=== PATIENT | male | born 1990 | race Caucasian/White ===

== ENCOUNTER 2019-05-07 11:25 | Emergency (ER) | payer OTHER ==
[~2019-05-07] VITALS: Ht 177.8 cm; Wt 87.1 kg
[2019-05-07 11:38] VITALS: Ht 177.8 cm; Wt 87.1 kg
[2019-05-07 13:59] VITALS: BP 125/80
== END 2019-05-07 13:59 | disposition home or self-care (01) ==
LOC: ED 11:25
DX: H52.12 Myopia, left eye (principal); Z90.89 Acquired absence of other organs
CPT/HCPCS: J1885; J3030